=== PATIENT | male | born 1995 | race Two or more races ===

== ENCOUNTER → 2024-10-17 | Outpatient (CLI) | payer OTHER ==
--- NOTE | 2024-10-17 16:00 | HMCIMG ---
CT CHEST HIGH RESOLUTION (WO) HISTORY: Question continuing COMPARISON: None TECHNIQUE: Multiple sequential axial images of the chest were obtained from the thoracic inlet through upper abdomen. Patient was not given contrast through intravenous route. High-resolution images were obtained. FINDINGS: Mild interstitial fibrotic changes are seen with associated bronchiectasis. There is mild COPD. There is no evidence of pulmonary nodule or parenchymal disease. No pleural effusion or pericardial effusion is seen. There is no evidence of pneumothorax. There are normal size mediastinal and hilar lymph nodes. The heart is not enlarged. Degenerative changes of the thoracolumbar spine are present. There is no evidence of adrenal nodule. IMPRESSION: 1. No evidence of pulmonary nodule or effusion is seen. Mild interstitial fibrotic changes. Mild COPD. CT was performed with one or more following dose reduction techniques: automated exposure control, adjustment of the mA and kv according to patient's size, or use of a iterative reconstruction technique.
== END | disposition home or self-care (01) ==
LOC: RAH 13:05 → EDUNIT# 14:00
PROVIDERS: ATTEND Family Medicine
DX: J84.10 Pulmonary fibrosis, unspecified (principal); J44.9 Chronic obstructive pulmonary disease, unspecified; M47.815 Spondylosis without myelopathy or radiculopathy, thoracolumbar region; Z86.018 Personal history of other benign neoplasm
CPT/HCPCS: 71250

== ENCOUNTER → 2024-10-22 | Outpatient (CLI) | payer OTHER ==
[~2024-10-22] MED LIST: GADOTERATE MEGLUMINE 10 MMOL/20 ML VIAL IV ONE; IOHEXOL-350 75 ML VIAL IV ONE
--- NOTE | 2024-10-22 12:19 | HMCIMG ---
CT PELVIS W/CONTRAST HISTORY: Personal history of benign neoplasm COMPARISON: None TECHNIQUE: Multiple sequential axial images of the pelvis were obtained from the iliac crests through symphysis pubis. Patient was given 75 cc of Omnipaque through intravenous route. Oral contrast was not given. FINDINGS: There are normal sized pelvic and inguinal lymph nodes. Fecal material seen throughout the colon. Diverticula are seen within the colon consistent with diverticulosis. No ascites is seen. Atherosclerotic changes are present. Pelvic sidewalls are symmetric bilaterally. Bladder is well distended without wall thickening. IMPRESSION: 1. Diverticulosis. Fecal material in the colon. CT was performed with one or more following dose reduction techniques: automated exposure control, adjustment of the mA and kv according to patient's size, or use of a iterative reconstruction technique.
--- NOTE | 2024-10-22 12:26 | HMCIMG ---
MR ABDOMEN W/WO CON HISTORY: Neoplasm COMPARISON: None TECHNIQUE: MRI of the abdomen was performed utilizing multiple pulse sequences in axial, coronal and sagittal planes. Patient was given 14 cc of Clariscan through intravenous route. Dynamic imaging technique was used. FINDINGS: No pleural effusion is seen bilaterally. Liver measures 16 cm. The spleen, adrenal glands and pancreas are unremarkable. Both kidneys are seen without hydronephrosis. No gallstone is seen in the gallbladder. Common duct is not dilated. No mass lesion or abnormal enhancement is seen. There is no evidence of adenopathy or ascites. IMPRESSION: 1. No mass lesion or abnormal enhancement is seen. No ascites is seen.
== END | disposition home or self-care (01) ==
LOC: EEVIPCON 09:28 → RAH 09:28
PROVIDERS: ATTEND Family Medicine
DX: K57.30 Diverticulosis of large intestine without perforation or abscess without bleeding (principal); N32.89 Other specified disorders of bladder; K76.89 Other specified diseases of liver; I70.90 Unspecified atherosclerosis; Z86.018 Personal history of other benign neoplasm
CPT/HCPCS: 74183; 72193; Q9967; A9575